=== PATIENT | female | born 1950 | race Caucasian/White ===

== ENCOUNTER 2019-03-22 10:44 | Outpatient (CLI) | payer MEDICARE ==
--- NOTE | 2019-03-22 11:43 | BD ---
BONE DENSITOMETRY USING DEXA: Date: 03/22/2019 HISTORY: Unspecified menopausal and perimenopausal disorder. Screening for postmenopausal osteoporosis. FINDINGS: Lumbar Spine: BMD (g/cm2) L1 0.731 T-Score: -2.4 Z-Score: -0.5 L2 0.721 T-Score: -2.8 Z-Score: -0.7 L3 0.786 T-Score: -2.7 Z-Score: -0.5 L4 1.025 T-Score: -0.3 Z-Score: 1.9 L1-L4 0.821 T-Score: -2.1 Z-Score: 0.1 Femoral Neck: 0.779 T-Score: -0.6 Z-Score: 1.2 Total Femur: 0.922 T-Score: -0.2 Z-Score: 1.3 The 10 year fracture risk for a major osteoporotic fracture is 7.8% and for a hip fracture is 0.6%. IMPRESSION: Osteopenia. POS: TPC
--- NOTE | 2019-03-22 11:55 | MMO ---
Bilateral MAMMO Bilat Screen [facility]. CLINICAL HISTORY: Patient is 69 years old and is seen for screening. The patient has no family history of breast cancer. The patient has no personal history of cancer. The patient has a history of right Excisional Biopsy in 1976 - benign. VIEWS: The views performed were: bilateral craniocaudal with tomosynthesis and bilateral mediolateral oblique with tomosynthesis. FILMS COMPARED: The present examination has been compared to prior imaging studies performed at [facility] on 06/13/2003, 08/13/2004, 06/01/2006 and 12/05/2011. This study has been interpreted with the assistance of computer-aided detection. MAMMOGRAM FINDINGS: There are scattered fibroglandular densities. Finding 1: There is a new mass measuring 8 millimeters with circumscribed margins seen in the posterior region of the right breast at 5 o'clock. Finding 2: There are new amorphous or indistinct calcifications with grouped or clustered distribution seen in the upper-outer region of the left breast. IMPRESSION: FINDING 1: NEW MASS IN THE RIGHT BREAST REQUIRES ADDITIONAL EVALUATION. ADDITIONAL PROJECTIONS (LEFT MEDIOLATERAL; RIGHT CRANIOCAUDAL SPOT COMPRESSION; AND RIGHT MEDIOLATERAL OBLIQUE SPOT COMPRESSION) ARE RECOMMENDED. AN ULTRASOUND EXAM IS RECOMMENDED. ADDITIONAL IMAGING. FINDING 2: NEW CALCIFICATIONS IN THE LEFT BREAST REQUIRE ADDITIONAL EVALUATION. ADDITIONAL PROJECTIONS (LEFT CRANIOCAUDAL SPOT COMPRESSION MAGNIFICATION; LEFT MEDIOLATERAL OBLIQUE SPOT COMPRESSION MAGNIFICATION; LEFT MEDIOLATERAL; AND LEFT MEDIOLATERAL SPOT COMPRESSION MAGNIFICATION) ARE RECOMMENDED. AN ULTRASOUND EXAM IS RECOMMENDED IF NEEDED. THE RESULTS OF THIS EXAM WERE SENT TO THE PATIENT. ACR BI-RADS Category 0 - Incomplete: Need additional imaging evaluation. [facility] will notify the patient of the need for additional imaging services. MAMMOGRAPHY NOTE: 1. A negative mammogram report should not delay a biopsy if a dominant of clinically suspicious mass is present. 2. Approximately 10% to 15% of breast cancers are not detected by mammography. 3. Adenosis and dense breasts may obscure an underlying neoplasm. Reported by: JIM SCHWAB MD Electonically Signed: [id number]
== END 2019-03-22 10:45 | disposition home or self-care (01) ==
LOC: BICMAMMO 10:44
PROVIDERS: ATTEND Family Medicine
DX: Z12.31 Encounter for screening mammogram for malignant neoplasm of breast (principal); Z13.820 Encounter for screening for osteoporosis; N95.9 Unspecified menopausal and perimenopausal disorder; N63.14 Unspecified lump in the right breast, lower inner quadrant; R92.1 Mammographic calcification found on diagnostic imaging of breast; Z91.89 Other specified personal risk factors, not elsewhere classified
CPT/HCPCS: 77063; 77067; 77080

== ENCOUNTER 2019-03-25 13:16 | Outpatient (CLI) | payer MEDICARE ==
--- NOTE | 2019-03-25 14:27 | MMO ---
Bilateral MAMMO Bilat Diag [facility]. CLINICAL HISTORY: Patient is 69 years old and is seen for additional evaluation requested at current screening. The patient has no family history of breast cancer. The patient has no personal history of cancer. The patient has a history of right Excisional Biopsy in 1976 - benign and right Excisional Biopsy - benign. VIEWS: The views performed were: bilateral mediolateral with tomosynthesis; left craniocaudal spot compression magnification; left mediolateral spot compression magnification; right mediolateral oblique spot compression with tomosynthesis; and right craniocaudal spot compression with tomosynthesis. FILMS COMPARED: The present examination has been compared to prior imaging studies performed at [facility] on 06/01/2006, 12/05/2011, 03/22/2019 and 03/25/2019. This study has been interpreted with the assistance of computer-aided detection. MAMMOGRAM FINDINGS: There are scattered fibroglandular densities. Finding 1: There is an oval mass with circumscribed margins seen in the right breast at 6 o'clock. This is shown to be a sebaceous cyst by ultrasound. Finding 2: There are fine pleomorphic calcifications with grouped or clustered distribution seen in the upper-outer region of the left breast. IMPRESSION: FINDING 1: MASS IN THE RIGHT BREAST IS BENIGN. FINDING 2: CALCIFICATIONS IN THE LEFT BREAST ARE SUSPICIOUS. A STEREOTACTIC BREAST BIOPSY IS RECOMMENDED. RESULTS AND RECOMMENDATIONS DISCUSSED WITH THE PATIENT AND QUESTIONS ANSWERED. THE RESULTS OF THIS EXAM WERE SENT TO THE PATIENT. ACR BI-RADS Category 4 - Suspicious abnormality - biopsy should be considered MAMMOGRAPHY NOTE: 1. A negative mammogram report should not delay a biopsy if a dominant of clinically suspicious mass is present. 2. Approximately 10% to 15% of breast cancers are not detected by mammography. 3. Adenosis and dense breasts may obscure an underlying neoplasm. Reported by: JUANA MARLEY MD Electonically Signed: [id number]
--- NOTE | 2019-03-25 14:50 | ULT ---
LIMITED RIGHT BREAST ULTRASOUND: DATE: 03/25/2019. PROVIDED CLINICAL HISTORY: Right breast mass. FINDINGS: Limited sonographic interrogation was performed of the right breast in the region of mammographic con cern. There is a circumscribed round hypoechoic mass at the 6 o'clock position of the right breast a t the dermal-breast tissue junction with a connection to the overlying skin surface demonstrated. Th is is compatible with a sebaceous cyst. IMPRESSION: BIRADS category 2 - benign findings. Mammographic abnormality corresponds to a sebaceous cyst. Plea se see concurrently dictated diagnostic mammogram for details regarding the left breast which require biopsy. POS: OFF
== END 2019-03-25 13:17 | disposition home or self-care (01) ==
LOC: BICMAMMO 13:16
PROVIDERS: ATTEND Family Medicine
DX: N63.14 Unspecified lump in the right breast, lower inner quadrant (principal); R92.1 Mammographic calcification found on diagnostic imaging of breast
CPT/HCPCS: 76642; 77066; G0279

== ENCOUNTER → 2019-04-05 | Day surgery (SDC) | payer MEDICARE ==
--- NOTE | 2019-04-05 08:16 | MMO ---
MAMMOGRAPHIC GUIDED STEREOTACTIC BREAST BIOPSY PREPROCEDURE DIAGNOSIS: Left breast calcifications PROCEDURE: 1. Stereotactic biopsy of left breast calcifications with vacuum assistance 2. Specimen radiograph 3. Post procedure mammogram [place]: Leila ANESTHESIA: 11 mL of buffered 1% lidocaine with epinephrine SPECIMEN: 6 -10-gauge vacuum-assisted core biopsy specimens TECHNIQUE: Prior to the procedure, the risks and benefits of stereotactic biopsy of the suspicious breast calcif ications were explained with the patient and full consent was obtained. The prior mammograms were reviewed showing calcifications in the left upper outer breast. The calcifications were localized with the stereotactic machine with approach from superior. The roberto st was prepped with Betadine. Lidocaine was used to anesthetize the skin and tissues surrounding the biopsy site. A skin incision was made to allowing for passage of the 10-gauge vacuum-assisted biopsy device. This device was then placed using stereotactic guidance into the region of the calcifications. 6 core biopsies were then performed. A specimen radiograph showed calcifications within multiple specimens. A biopsy clip was then placed at the biopsy site. A postprocedure mammogram showed the clip approxima tely 1 cm inferior to the biopsy site in the region where the suspicious calcifications were seen on the preprocedure mammogram. No residual calcifications were present.
== END ==
LOC: MAMMO 07:01
PROVIDERS: ATTEND Family Medicine
PROC: 0H9U3ZX Drainage of Left Breast, Percutaneous Approach, Diagnostic (ICD-10-PCS; principal; 2019-04-05)
DX: R92.0 Mammographic microcalcification found on diagnostic imaging of breast (principal)
CPT/HCPCS: 19081; 76098; 88305; 88341; 88342

== ENCOUNTER 2020-03-26 12:47 | Outpatient (CLI) | payer MEDICARE ==
--- NOTE | 2020-03-26 13:52 | MMO ---
Bilateral MAMMO Bilat Screen [facility]. CLINICAL HISTORY: Patient is 70 years old and is seen for screening. The patient has no family history of breast cancer. The patient has no personal history of cancer. The patient has a history of right Excisional Biopsy in 1976 - benign and right Excisional Biopsy - benign. VIEWS: The views performed were: bilateral craniocaudal with tomosynthesis and bilateral mediolateral oblique with tomosynthesis. FILMS COMPARED: The present examination has been compared to prior imaging studies performed at [facility] on 03/22/2019, 03/25/2019 and 04/05/2019. This study has been interpreted with the assistance of computer-aided detection. MAMMOGRAM FINDINGS: There are scattered fibroglandular densities. Finding 1: There are stable benign appearing calcifications seen in both breasts. Finding 2: There is a biopsy clip seen in the left breast. There are no suspicious masses, suspicious calcifications, or new areas of architectural distortion. IMPRESSION: THERE IS NO MAMMOGRAPHIC EVIDENCE OF MALIGNANCY. A ROUTINE FOLLOW-UP MAMMOGRAM IN 1 YEAR IS RECOMMENDED. THE RESULTS OF THIS EXAM WERE SENT TO THE PATIENT. ACR BI-RADS Category 2 - Benign finding MAMMOGRAPHY NOTE: 1. A negative mammogram report should not delay a biopsy if a dominant of clinically suspicious mass is present. 2. Approximately 10% to 15% of breast cancers are not detected by mammography. 3. Adenosis and dense breasts may obscure an underlying neoplasm. Reported by: LORENA PETER MD Electonically Signed: [id number]
== END 2020-03-26 12:48 | disposition home or self-care (01) ==
LOC: BICMAMMO 12:47
PROVIDERS: ATTEND Family Medicine
DX: Z12.31 Encounter for screening mammogram for malignant neoplasm of breast (principal); Z91.89 Other specified personal risk factors, not elsewhere classified
CPT/HCPCS: 77063; 77067

== ENCOUNTER 2021-02-12 15:17 | Outpatient (CLI) | payer MEDICARE ==
[2021-02-12 16:39] LABS: INR-International Normal Ratio 0.9; PTT 24.9 sec (22.0-33.0); Prothrombin Time 10.3 sec (9.5-12.1)
[2021-02-12 16:40] LABS: Hemoglobin 16.4 g/dL (12.0-15.5); Mean Corpuscular HGB CONC 33.4 g/dL (32.0-36.0); Mean Corpuscular Hemoglobin 28.8 pg (27.0-33.0); Mean Corpuscular Volume 86.3 fl (81.6-98.3); Mean Platelet Volume 11.6 fl (7.4-10.4); Platelet Count 230 10x3/uL (150-450); RBC Distribution Width 12.6 % (11.5-14.5); Red Blood Cell (RBC) Count 5.69 10x6/uL (3.90-5.03); White Blood Cell (WBC) Count 7.5 10x3/uL (3.5-10.5)
[2021-02-12 16:43] LABS: Anion Gap 14 mmol/L (10-20); BUN (Urea Nitrogen) 14 mg/dL (9.8-20.1); Calc. Creatinine Clearance 0 mL/min (70-130); Calcium 9.4 mg/dL (7.8-10.44); Carbon Dioxide 23 mmol/L (23-31); Chloride 108 mmol/L (98-107); Glucose 128 mg/dL (83-110); Potassium 4.2 mmol/L (3.5-5.1); Sodium 141 mmol/L (136-145)
[2021-02-13 06:55] LABS: SARS-CoV-2 NAA Rapid Test Not Detected (NotDetected)
== END 2021-02-12 15:18 | disposition home or self-care (01) ==
LOC: LABBT 15:17
PROVIDERS: ATTEND Urology
DX: Z01.818 Encounter for other preprocedural examination (principal); N20.1 Calculus of ureter; Z20.822 Contact with and (suspected) exposure to COVID-19
CPT/HCPCS: 80048; 85027; 85610; 85730; U0003; U0005; 81001; 87086; 93005; 93010; U0002

== ENCOUNTER 2021-02-13 10:03 | Day surgery (SDC) | payer MEDICARE ==
[2021-02-12 14:22] VITALS: BMI 37.3
[2021-02-13] MEDS ORDERED: Levofloxacin 500 mg/D5W 100 ml Premix Bag ONE (11:44)
[2021-02-13] MEDS ORDERED: Iothalamate Meglumine 60% 50 ML VIAL FS ONE (11:47)
[2021-02-13] MEDS ORDERED: SUGAMMADEX SODIUM 200 MG/2 ML VIAL ONE (11:50)
[2021-02-13] MEDS ORDERED: Fentanyl 100 MCG/2 ML VIAL ONE (11:50)
[2021-02-13] MEDS ORDERED: Dexamethasone 20 MG/5 ML VIAL ONE (12:05)
[2021-02-13] MEDS ORDERED: Ondansetron PF 4 MG/2 ML Vial ONE (12:05)
[2021-02-13] MEDS ORDERED: Lidocaine 1% PF 5 ML VIAL ONE (12:05)
[2021-02-13] MEDS ORDERED: PROPOFOL 200 MG/20 ML VIAL ONE (12:05)
[2021-02-13] MEDS ORDERED: Ketorolac Tromethamine 30 MG/ML VIAL ONE (12:05)
[2021-02-13] MEDS ORDERED: Rocuronium Bromide 10 MG/ML (10ML VIAL) ONE (12:05)
[2021-02-13] MEDS ORDERED: Phenazopyridine HCl 100 MG TAB ONE (13:13)
[2021-02-13] MEDS ORDERED: Oxybutynin 5 MG TAB ONE (13:13)
== END 2021-02-13 14:20 | disposition home or self-care (01) ==
LOC: SDC 10:03
PROVIDERS: ATTEND Urology
PROC: 0TC68ZZ Extirpation of Matter from Right Ureter, Via Natural or Artificial Opening Endoscopic (ICD-10-PCS; principal; 2021-02-13)
PROC: 0T778DZ Dilation of Left Ureter with Intraluminal Device, Via Natural or Artificial Opening Endoscopic (ICD-10-PCS; 2021-02-13)
DX: N13.2 Hydronephrosis with renal and ureteral calculous obstruction (principal); N81.89 Other female genital prolapse; K21.9 Gastro-esophageal reflux disease without esophagitis; E78.5 Hyperlipidemia, unspecified; N18.30 Chronic kidney disease, stage 3 unspecified; M13.0 Polyarthritis, unspecified; G89.29 Other chronic pain; M10.9 Gout, unspecified; Z90.710 Acquired absence of both cervix and uterus; Z98.890 Other specified postprocedural states; Z79.82 Long term (current) use of aspirin; Z79.51 Long term (current) use of inhaled steroids; Z79.899 Other long term (current) drug therapy
CPT/HCPCS: 52356; 74018; 74420; 82365; C2617; Q9961; 88300; J1100; J1885; J1956; J2405; J2704; J3010

== ENCOUNTER 2022-12-26 13:42 | Outpatient (CLI) | payer MEDICARE | END 2022-12-26 13:43 | disposition home or self-care (01) | LOC: BICMAMMO 13:42 | PROVIDERS: ATTEND Family Medicine | DX: Z12.31 Encounter for screening mammogram for malignant neoplasm of breast (principal); Z91.89 Other specified personal risk factors, not elsewhere classified | CPT/HCPCS: 77063; 77067 ==